=== PATIENT | female | born 1990 | race Caucasian/White ===

== ENCOUNTER 2016-04-24 07:33 | Emergency (ER) | payer SELFPAY ==
[~2016-04-24] VITALS: Ht 167.6 cm; Wt 88.5 kg
[~2016-04-24 07:33] MED LIST: AMOXICILLIN500 M2 PO; AMOXICILLIN500 MG PO; ANTIDEPRESSANT PO; ATARAX25 MG PO; BACTRIM DS 8001 TA1 PO; CELEXA20 MG PO; FLAGYL500 MG PO; KEFLEX500 MG PO; MACROBID100 M1 PO; MOTRIN800 MG PO; NKHM; NO DAILY MEDS; PHENERGAN12.5 M1 PO; PREDNISONE20 MG PO; PRILOSEC20 MG PO; PYRIDIUM200 MG PO; SEROQUEL100 MG PO; ULTRAM50 MG PO; ZITHROMAX Z PA250 MG PO; ZOFRAN ODT4 MG SL; ZOFRAN4 MG PO; [UNRECOGNIZED DRUG - REMARK]
[2016-04-24 08:32] LABS: BILIRUBIN NEGATIVE (NEGATIVE); BLOOD 3+ (NEGATIVE); CLARITY CLEAR (CLEAR); COLOR YELLOW (YELLOW); GLUCOSE NEGATIVE (NEGATIVE); KETONE NEGATIVE (NEGATIVE); LEUKO ESTERASE 1+ (NEGATIVE); NITRITE NEGATIVE (NEGATIVE); PROTEIN NEGATIVE (NEGATIVE); SPECIFIC GRAVITY <= 1.005 (1.005-1.030); UROBILINOGEN 0.2 E.U./dl (0.2-1.0)
[2016-04-24 08:42] LABS: BACTERIA 1+
[2016-04-24 08:43] LABS: URINE REFLEX COMMENT YES (NO)
[2016-04-24] MEDS ORDERED: MACROBID100 M1 PO (08:45)
== END 2016-04-24 09:00 | disposition home or self-care (01) ==
LOC: ED 07:33
PROVIDERS: Emergency Medicine
DX: S40.011A Contusion of right shoulder, initial encounter (principal); S60.221A Contusion of right hand, initial encounter; N39.0 Urinary tract infection, site not specified; F41.9 Anxiety disorder, unspecified; F31.9 Bipolar disorder, unspecified; F17.200 Nicotine dependence, unspecified, uncomplicated; V47.6XXA Car passenger injured in collision with fixed or stationary object in traffic accident, initial encounter; Y93.89 Activity, other specified; Y92.89 Other specified places as the place of occurrence of the external cause; Y99.9 Unspecified external cause status

== ENCOUNTER 2016-07-09 10:54 | Emergency (ER) | payer SELFPAY ==
[~2016-07-09] VITALS: Wt 68.0 kg
[2016-07-09] MEDS ORDERED: CLARITIN10 MG PO (11:25)
[2016-07-09] MEDS ORDERED: FLONASE ALLERG9.9 ML NAS (11:25)
[2016-07-09] MEDS ORDERED: PREDNISONE10 MG PO (11:25)
== END 2016-07-09 11:30 | disposition home or self-care (01) ==
LOC: ED 10:54
DX: J02.0 Streptococcal pharyngitis (principal); R03.0 Elevated blood-pressure reading, without diagnosis of hypertension; F41.9 Anxiety disorder, unspecified; F31.9 Bipolar disorder, unspecified; F32.9 Major depressive disorder, single episode, unspecified; F17.200 Nicotine dependence, unspecified, uncomplicated

== ENCOUNTER 2016-12-09 09:52 | Emergency (ER) | payer SELFPAY ==
[~2016-12-09] VITALS: Ht 170.1 cm; Wt 83.9 kg
[~2016-12-09 09:52] MED LIST changes: +CLARITIN10 MG PO; +FLONASE ALLERG9.9 ML NAS; +PREDNISONE10 MG PO
[2016-12-09] MEDS ORDERED: PRENATAL VITAM1 EAC4 PO (10:40)
[2016-12-09 10:41] LABS: BILIRUBIN NEGATIVE (NEGATIVE); BLOOD 3+ (NEGATIVE); CLARITY CLOUDY (CLEAR); COLOR YELLOW (YELLOW); GLUCOSE NEGATIVE (NEGATIVE); KETONE NEGATIVE (NEGATIVE); LEUKO ESTERASE NEGATIVE (NEGATIVE); NITRITE NEGATIVE (NEGATIVE); PH 7.5 (5.0-9.0); UROBILINOGEN 0.2 E.U./dl (0.2-1.0)
[2016-12-09 10:55] LABS: BACTERIA TRACE; RBC TNTC rbc/hpf (0-2)
== END 2016-12-09 11:50 | disposition home or self-care (01) ==
LOC: ED 09:52
PROVIDERS: Nurse Practitioner Family
DX: Z32.01 Encounter for pregnancy test, result positive (principal); Z79.899 Other long term (current) drug therapy

== ENCOUNTER 2016-12-13 11:22 | Emergency (ER) | payer MEDICAID ==
[~2016-12-13] VITALS: Ht 170.1 cm; Wt 83.9 kg
[~2016-12-13 11:22] MED LIST changes: +PRENATAL VITAM1 EAC4 PO
[2016-12-13 11:59] LABS: BASO % 0.3 % (0.0-1.0); EOS # 0.1 10*3/uL (0.0-0.4); EOS % 1.5 % (1.0-4.0); HEMATOCRIT 34.2 % (37.0-47.0); HEMOGLOBIN 12.4 g/dl (12.0-16.0); LYMPH # 1.8 10*3/uL (1.3-4.4); LYMPH % 29.2 % (27.0-41.0); MEAN CELL VOLUME 89.8 fl (81.0-99.0); MEAN CORPUSCULAR HGB 32.5 pg (27.0-31.0); MEAN CORPUSCULAR HGB CONC 36.3 g/dl (33.0-37.0); MEAN PLATELET VOLUME 10.2 fl (9.6-12.3); MONO # 0.4 10*3/uL (0.1-1.0); MONO % 7.2 % (3.0-9.0); NEUT # 3.7 10*3/uL (2.3-7.9); NEUT % 61.3 % (47.0-73.0); PLATELET COUNT AUTOMATED 228 10*3/uL (130-400); RED BLOOD COUNT 3.81 10*6/uL (4.10-5.10); RED CELL DISTRI WIDTH 12.2 % (0-14.5); WHITE BLOOD COUNT 6.1 10*3/uL (4.8-10.8)
[2016-12-13 12:01] LABS: BILIRUBIN NEGATIVE (NEGATIVE); BLOOD 3+ (NEGATIVE); CLARITY CLOUDY (CLEAR); COLOR RED (YELLOW); GLUCOSE NEGATIVE (NEGATIVE); KETONE NEGATIVE (NEGATIVE); LEUKO ESTERASE NEGATIVE (NEGATIVE); NITRITE NEGATIVE (NEGATIVE); SPECIFIC GRAVITY <= 1.005 (1.005-1.030); UROBILINOGEN 0.2 E.U./dl (0.2-1.0)
[2016-12-13 12:14] LABS: ALBUMIN 3.5 gm/dl (3.1-4.5); ALKALINE PHOSPHATASE 46 U/L (45-117); BUN 11 mg/dl (7-24); CHLORIDE 109 mmol/L (98-107); CREATININE 0.89 mg/dL (0.55-1.02); POTASSIUM 3.7 mmol/L (3.5-5.1); SGOT/AST 12 IU/L (3-35); SGPT/ALT 15 U/L (12-78); SODIUM 139 mmol/L (136-145); TOTAL PROTEIN 6.6 gm/dL (6.4-8.2)
[2016-12-13 12:22] LABS: RBC TNTC rbc/hpf (0-2); WBC 0-2 wbc/hpf (0-5)
== END 2016-12-13 15:26 | disposition home or self-care (01) ==
LOC: ED 11:22
PROVIDERS: Physician Assistant
DX: O46.8X1 Other antepartum hemorrhage, first trimester (principal); Z87.891 Personal history of nicotine dependence; Z3A.01 Less than 8 weeks gestation of pregnancy

== ENCOUNTER → 2016-12-21 | Outpatient (CLI) | payer MEDICAID | END | disposition home or self-care (01) | LOC: US 10:00 | DX: O20.0 Threatened abortion (principal); Z3A.01 Less than 8 weeks gestation of pregnancy ==

== ENCOUNTER → 2017-01-05 | Outpatient (CLI) | payer MEDICAID ==
[2017-01-05 10:56] LABS: BASO % 0.5 % (0.0-1.0); EOS # 0.1 10*3/uL (0.0-0.4); EOS % 0.9 % (1.0-4.0); HEMATOCRIT 34.5 % (37.0-47.0); HEMOGLOBIN 12.2 g/dl (12.0-16.0); LYMPH # 1.9 10*3/uL (1.3-4.4); LYMPH % 24.7 % (27.0-41.0); MEAN CELL VOLUME 91.3 fl (81.0-99.0); MEAN CORPUSCULAR HGB 32.3 pg (27.0-31.0); MEAN CORPUSCULAR HGB CONC 35.4 g/dl (33.0-37.0); MEAN PLATELET VOLUME 10.2 fl (9.6-12.3); MONO # 0.6 10*3/uL (0.1-1.0); NEUT % 65.5 % (47.0-73.0); PLATELET COUNT AUTOMATED 254 10*3/uL (130-400); RED BLOOD COUNT 3.78 10*6/uL (4.10-5.10); RED CELL DISTRI WIDTH 12.4 % (0-14.5); WHITE BLOOD COUNT 7.6 10*3/uL (4.8-10.8)
[2017-01-05 13:12] LABS: URINE AMPHETAMINES < 1000 (1000ng/ml); URINE BARBITURATES < 200 (200ng/ml); URINE CANNABINOIDS (THC) < 50 (50ng/ml); URINE COCAINE < 300 (300ng/ml); URINE METHADONE < 300 (300ng/ml); URINE OPIATES < 300 (300ng/ml)
[2017-01-05 13:13] LABS: URINE BENZODIAZEPINES < 200 (200ng/ml)
[2017-01-05 13:14] LABS: URINE PHENCYCLIDINE < 25 (25ng/ml)
[2017-01-06 05:07] LABS: HEPATITIS B SURFACE AG Negative (Negative)
[2017-01-06 06:09] LABS: HIV 1+2 AB + HIV1 P24 AG Non Reactive (Non Reactive)
[2017-01-06 12:09] LABS: VARICELLA-ZOSTER IGG 096206 584 index (Immune >165)
== END | disposition home or self-care (01) ==
LOC: LAB 10:11
PROVIDERS: Nurse Practitioner Women's Health
DX: Z34.91 Encounter for supervision of normal pregnancy, unspecified, first trimester (principal)

== ENCOUNTER → 2017-03-19 | Outpatient (CLI) | payer MEDICAID | END | disposition home or self-care (01) | LOC: US 09:36 | DX: Z34.92 Encounter for supervision of normal pregnancy, unspecified, second trimester (principal) ==

== ENCOUNTER 2018-07-28 18:53 | Emergency (ER) | payer OTHER ==
[~2018-07-28] VITALS: Ht 167.6 cm; Wt 99.8 kg
[2018-07-28] MEDS ORDERED: ANAPROX DS550 MG PO (19:16)
[2018-07-28] MEDS ORDERED: AMOXICILLIN500 M3 PO (19:16)
== END 2018-07-28 19:24 | disposition home or self-care (01) ==
LOC: ED 18:53
DX: K03.81 Cracked tooth (principal); Z87.891 Personal history of nicotine dependence

== ENCOUNTER 2018-12-23 10:59 | Emergency (ER) | payer OTHER ==
[~2018-12-23] VITALS: Ht 167.6 cm; Wt 103.9 kg
[~2018-12-23 10:59] MED LIST changes: +AMOXICILLIN500 M3 PO; +ANAPROX DS550 MG PO
== END 2018-12-23 12:06 | disposition home or self-care (01) ==
LOC: ED 10:59
DX: O46.91 Antepartum hemorrhage, unspecified, first trimester (principal); Z79.899 Other long term (current) drug therapy; Z3A.01 Less than 8 weeks gestation of pregnancy

== ENCOUNTER → 2019-02-10 | Outpatient (CLI) | payer OTHER | END | disposition home or self-care (01) | LOC: US 16:00 | DX: Z34.81 Encounter for supervision of other normal pregnancy, first trimester (principal); Z3A.12 12 weeks gestation of pregnancy ==

== ENCOUNTER → 2019-04-09 | Outpatient (CLI) | payer OTHER | END | disposition home or self-care (01) | LOC: US 13:30 | DX: Z34.82 Encounter for supervision of other normal pregnancy, second trimester (principal); Z3A.21 21 weeks gestation of pregnancy ==

== ENCOUNTER → 2019-04-28 | Outpatient (CLI) | payer OTHER | END | disposition home or self-care (01) | LOC: US 13:30 | DX: Z34.82 Encounter for supervision of other normal pregnancy, second trimester (principal); Z3A.23 23 weeks gestation of pregnancy ==

== ENCOUNTER → 2019-05-27 | Outpatient (CLI) | payer OTHER | END | disposition home or self-care (01) | LOC: US 16:00 | DX: Z34.82 Encounter for supervision of other normal pregnancy, second trimester (principal); Z3A.26 26 weeks gestation of pregnancy ==

== ENCOUNTER 2020-03-30 13:20 | Emergency (ER) | payer OTHER ==
[~2020-03-30] VITALS: Ht 167.6 cm; Wt 114.3 kg
== END 2020-03-30 17:19 | disposition home or self-care (01) ==
LOC: ED 13:20
DX: R05 Cough (principal); R09.81 Nasal congestion; R50.9 Fever, unspecified; R52 Pain, unspecified; F32.9 Major depressive disorder, single episode, unspecified; F17.200 Nicotine dependence, unspecified, uncomplicated; Z79.2 Long term (current) use of antibiotics; Z79.899 Other long term (current) drug therapy; Z20.828 Contact with and (suspected) exposure to other viral communicable diseases

== ENCOUNTER 2020-07-10 11:31 | Emergency (ER) | payer OTHER ==
[~2020-07-10] VITALS: Ht 170.1 cm; Wt 108.9 kg
[2020-07-10 13:34] LABS: HEMATOCRIT 38.4 % (37.0-47.0); MEAN CELL VOLUME 89.5 fl (81.0-99.0); MEAN CORPUSCULAR HGB 30.8 pg (27.0-31.0); MEAN CORPUSCULAR HGB CONC 34.4 g/dl (33.0-37.0); MEAN PLATELET VOLUME 10.2 fl (9.6-12.3); PLATELET COUNT AUTOMATED 252 10*3/uL (130-400); RED BLOOD COUNT 4.29 10*6/uL (4.10-5.10); RED CELL DISTRI WIDTH 12.9 % (0-14.5); WHITE BLOOD COUNT 3.2 10*3/uL (4.8-10.8)
[2020-07-10 13:51] LABS: ALBUMIN 3.5 gm/dl (3.1-4.5); ALKALINE PHOSPHATASE 67 U/L (45-117); BUN 11 mg/dl (7-24); CHLORIDE 108 mmol/L (98-107); CREATININE 0.83 mg/dL (0.55-1.02); POTASSIUM 3.8 mmol/L (3.5-5.1); SGOT/AST 11 IU/L (3-35); SGPT/ALT 18 U/L (12-78); SODIUM 140 mmol/L (136-145); TOTAL PROTEIN 7.1 gm/dL (6.4-8.2)
[2020-07-10 13:53] LABS: PLATELET SUFFICIENCY NORMAL (NORMAL); TOTAL CELLS COUNTED 100 #CELLS
[2020-07-10 14:36] LABS: BILIRUBIN Negative (Negative); BLOOD 2+ (Negative); CLARITY Turbid (Clear); COLOR Yellow (Yellow); GLUCOSE Negative (Negative); KETONE Negative (Negative); LEUKO ESTERASE 1+ (Negative); NITRITE Negative (Negative); PH 7.5 (4.5-8.0); SPECIFIC GRAVITY 1.025 (1.001-1.030)
[2020-07-10 14:51] LABS: BACTERIA 2+; EPITHELIAL CELLS 41-50; RBC 51-100 rbc/hpf (0-2); TRIP PHOS CRYSTALS 1+; WBC 21-30 wbc/hpf (0-5)
[2020-07-10] MEDS ORDERED: CIPRO250 MG PO (19:10)
== END 2020-07-10 23:38 | disposition home or self-care (01) ==
LOC: ED 11:31
PROVIDERS: Emergency Medicine; Nurse Practitioner
DX: U07.1 COVID-19 (principal); N39.0 Urinary tract infection, site not specified; F17.200 Nicotine dependence, unspecified, uncomplicated; Z79.899 Other long term (current) drug therapy

== ENCOUNTER 2022-07-10 15:03 | Emergency (ER) | payer MEDICAID ==
[~2022-07-10] VITALS: Ht 170.1 cm; Wt 95.7 kg
[~2022-07-10 15:03] MED LIST changes: +CIPRO250 MG PO
[2022-07-10] MEDS ORDERED: AMOXICILLIN500 M3 PO (15:19)
[2022-07-10] MEDS ORDERED: HYDROCODONE-AC1 EAC1 PO (15:19)
== END 2022-07-10 15:44 | disposition home or self-care (01) ==
LOC: ED 15:03
DX: S02.5XXA Fracture of tooth (traumatic), initial encounter for closed fracture (principal); K04.7 Periapical abscess without sinus; H66.92 Otitis media, unspecified, left ear; F32.A Depression, unspecified; F17.200 Nicotine dependence, unspecified, uncomplicated; X58.XXXA Exposure to other specified factors, initial encounter; Y93.89 Activity, other specified; Y92.89 Other specified places as the place of occurrence of the external cause; Y99.8 Other external cause status

== ENCOUNTER 2022-09-26 22:32 | Emergency (ER) | payer OTHER, MEDICAID ==
[~2022-09-26] VITALS: Ht 170.1 cm; Wt 94.8 kg
[~2022-09-26 22:32] MED LIST changes: +HYDROCODONE-AC1 EAC1 PO
[2022-09-27] MEDS ORDERED: CEPHALEXIN500 M1 PO (01:57)
== END 2022-09-27 02:20 | disposition home or self-care (01) ==
LOC: ED 22:32
DX: S62.524A Nondisplaced fracture of distal phalanx of right thumb, initial encounter for closed fracture (principal); S61.111A Laceration without foreign body of right thumb with damage to nail, initial encounter; Z86.16 Personal history of COVID-19; F41.9 Anxiety disorder, unspecified; F31.9 Bipolar disorder, unspecified; E87.6 Hypokalemia; F17.200 Nicotine dependence, unspecified, uncomplicated; Z79.899 Other long term (current) drug therapy; W27.8XXA Contact with other nonpowered hand tool, initial encounter; Y93.89 Activity, other specified; Y92.89 Other specified places as the place of occurrence of the external cause; Y99.0 Civilian activity done for income or pay